=== PATIENT | female | born 1970 | race Caucasian/White ===

== ENCOUNTER 2023-04-01 05:24 | Day surgery (SDC) | payer BC ==
[2023-03-25 12:15] LABS: BASOPHILS % (AUTO) 0.5 % (0-1); EOSINOPHILS # (AUTO) 0.3 X10'3 (0-0.9); EOSINOPHILS % (AUTO) 3.8 % (0-6); LYMPHOCYTES # (AUTO) 2.3 X10'3 (1.1-4.8); LYMPHOCYTES % (AUTO) 33.7 % (21-51); MEAN CORPUSCULAR HEMOGLOBIN 29.9 PG (27.0-31.0); MEAN CORPUSCULAR HGB CONC 33.6 g/dL (33.0-36.5); MEAN CORPUSCULAR VOLUME 88.8 FL (78-98); MONOCYTES # (AUTO) 0.4 X10'3 (0-0.9); MONOCYTES % (AUTO) 5.9 % (2-12); NEUTROPHILS # (AUTO) 3.9 X10'3 (1.8-7.7); NEUTROPHILS % (AUTO) 56.1 % (42-75); PRE OP HEMATOCRIT 40.9 % (35.0-45.0); PRE OP HEMOGLOBIN 13.7 g/dL (12.0-16.0); PRE OP PLATELET COUNT 190 X10'3 (140-440); RED CELL DISTRIBUTION WIDTH 14.2 % (11.5-14.5)
[2023-03-25 12:53] LABS: ALBUMIN 3.5 G/DL (3.4-5.0); ALBUMIN/GLOBULIN RATIO 1.1 (1.1-1.5); ALKALINE PHOSPHATASE 68 IU/L (46-116); BLOOD UREA NITROGEN 11 MG/DL (7-18); BUN/CREATININE RATIO 10.7 (10.0-20.0); CALCIUM 9.2 MG/DL (8.5-10.1); CHLORIDE 108 MMOL/L (99-107); CREATININE 1.03 MG/DL (0.40-0.90); PRE OP ALT 25 U/L (30-65); PRE OP ANION GAP 11 (8-16); PRE OP AST 14 U/L (10-37); PRE OP BILIRUB, TOTAL 0.4 MG/DL (0.0-1.0); PRE OP GLUCOSE 106 MG/DL (70-104); PRE OP POTASSIUM 3.9 MMOL/L (3.4-5.1); PRE OP SODIUM 143 MMOL/L (135-145); TOTAL CARBON DIOXIDE 24.5 MMOL/L (24-32); TOTAL PROTEIN 6.7 G/DL (6.4-8.2); eGFR 56 ML/MIN
[~2023-04-01] VITALS: Ht 170.2 cm; Wt 120.8 kg
[~2023-04-01 05:24] MED LIST: ADV50250 INH; SEMA0.258 SQ; ringers solution, lacted 1,000 ML IV SCH
[2023-04-01] MEDS ORDERED: ceFAZolin inj. 3,000 MG in normal saline 100ml IV soln 100 ML IV ONE (05:30)
[2023-04-01] MEDS ORDERED: cefazolin 2gm/D5W 100mL 100 ML IV ONE (05:30)
[2023-04-01] MEDS ORDERED: famotidine 20mg tablet PO ONE (05:30)
[2023-04-01] MEDS ORDERED: BUPIVAcaine/PF 2.5mg/ml (0.25%) 10ml vial ONE (06:46)
[2023-04-01] MEDS ORDERED: morphine 2 MG/ML inj. syringe IV PRN (07:30)
[2023-04-01] MEDS ORDERED: morphine 4 MG/ML inj SYRINge IV PRN (07:30)
[2023-04-01] MEDS ORDERED: ondansetron/PF 4mg/2ml inj IV PRN (07:30)
[2023-04-01] MEDS ORDERED: meperidine/PF 25mg/ml syringe IV PRN ×3 (07:30)
[2023-04-01] MEDS ORDERED: proCHLORperazine 10 MG/2 ml inj IV PRN (07:30)
[2023-04-01] MEDS ORDERED: ringers solution, lacted 1,000 ML IV SCH (07:30)
[2023-04-01 08:02] VITALS: BP 170/100
--- NOTE | 2023-04-01 08:02 | NUR ---
Received from OR via naga, accompanied by Anesthesiologist and report given by [facility] Anesthesiologist. PATIENT WAKING UP, DENIES PAIN, V/S WNL, 20G TO LEFT FOREARM, drsg to RIGHT WRIST C/D/I. BLAINE AND ELLEN MONTEMAYOR. Addendum: 04/01/23 at 0840 by Navi Farmer RN Amended: Links added.
[2023-04-01 08:10] VITALS: BP 129/80
[2023-04-01 08:11] VITALS: BP 130/76
[2023-04-01 08:13] VITALS: BP 130/76
[2023-04-01 08:20] VITALS: BP 139/94
[2023-04-01 08:30] VITALS: BP 138/80
--- NOTE | 2023-04-01 08:32 | NUR ---
ALL DISCHARGE CRITERIA HAS BEEN MET. VSS, PAIN AT A TOLERABLE LEVEL, VOIDING AND ABLE TO SAFELY AMBULATE AND TRANSFER SELF. IV TAKEN OUT WITHOUT ANY COMPLICATIONS. ALL DISCHARGE INSTRUCTIONS COVERED WITH PATIENT AND ALL QUESTIONS ANSWERED. PATIENT TAKEN OUT VIA WHEELCHAIR WITH ALL BELONGINGS TO PERSONAL VEHICLE WHERE FAMILY DROVE PATIENT HOME. Addendum: 04/01/23 at 0844 by Navi Farmer RN Amended: Links added.
[2023-04-01] MEDS ORDERED: LIDOcaine 0.5% (5mg/ml) 50ml vial ONE (08:43)
== END 2023-04-01 08:32 | disposition home or self-care (01) ==
LOC: PAS 05:24 → EDUNIT# 07:30 → PAS 08:32
PROVIDERS: ATTEND Orthopaedic Surgery Hand Surgery
DX: G56.01 Carpal tunnel syndrome, right upper limb (principal); E66.9 Obesity, unspecified; Z68.42 Body mass index [BMI] 45.0-49.9, adult; J45.909 Unspecified asthma, uncomplicated; M17.32 Unilateral post-traumatic osteoarthritis, left knee; Z98.890 Other specified postprocedural states; Z79.899 Other long term (current) drug therapy; Z82.49 Family history of ischemic heart disease and other diseases of the circulatory system
CPT/HCPCS: 29848; 36415; 80053; 82948; 85025; J0690; J3490; J7030; J7120; Z7506; Z7512; A4215